=== PATIENT | male | born 1995 | race Caucasian/White ===

== ENCOUNTER 2016-04-15 11:42 | Emergency (ER) | payer MEDICAID ==
[2016-04-15 11:57] VITALS: BP 124/80
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
[2016-04-15] MEDS ORDERED: HYDROCODONE/ACETAMINOPHEN 5-325 MG TABLET PO ONE (12:51)
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
== END 2016-04-15 16:04 | disposition home or self-care (01) ==
LOC: ER 11:42
DX: M25.551 Pain in right hip (principal); M54.5 Low back pain; M25.561 Pain in right knee; V18.9XXA Unspecified pedal cyclist injured in noncollision transport accident in traffic accident, initial encounter; Y93.55 Activity, bike riding; Y92.89 Other specified places as the place of occurrence of the external cause; M47.9 Spondylosis, unspecified; F17.200 Nicotine dependence, unspecified, uncomplicated; Z88.5 Allergy status to narcotic agent
CPT/HCPCS: 72110; 72220; 99284

== ENCOUNTER 2016-05-03 18:56 | Emergency (ER) | payer MEDICAID ==
[2016-05-03] MEDS ORDERED: NORMAL SALINE 1000 ML 1,000 ML IV ONE ×2 (19:30→22:32)
--- NOTE | 2016-05-03 19:30 | ER Document Report ---
ED Seizure - General Chief Complaint: Probable Seizure Stated Complaint: SEIZURES Time seen by provider: 19:25 Notes: Patient is a 20 year old male that comes to the ED for chief complaint of a shaking episode witnessed prior to arrival, [facility] when the staff noticed he appeared to be shaking. Patient was picked up by EMS and was awake and alert, EMS reported that he closes his eyes and began shaking his arm but when he was spoken to and shaken he immediately opened his eyes. Patient states that he has had seizures in the past but he denies ever being on seizure medications other than "benzos". Patient states that he has had episodes where "they were not sure if they were panic attacks or seizures", states the last when he had was when he "drank an energy drink and then went outside into the cold". Denies headache, denies any current symptoms other than feeling tired. Patient has 2 medications with him, meloxicam and Seroquel, takes the Seroquel at night to sleep. He states these were given to him from [place] which he was recently released from after a suicide attempt, he states that he has "learned his lesson from this", states he does not have any suicidal or homicidal ideations. - Related Data Allergies/Adverse Reactions: tramadol [From [facility]] Allergy (Verified 04/15/16 11:58) Past Medical History - General Information source: Patient - Social History Smoking Status: Never Smoker Frequency of alcohol use: Occasional Drug Abuse: None Lives with: Family Family History: Reviewed & Not Pertinent Neurological Medical History: Reports: Hx Seizures Psychiatric Medical History: Reports: Hx Bipolar Disorder, Hx Depression Past Surgical History: Reports: Hx Orthopedic Surgery - Hand/thumb - Immunizations Hx Diphtheria, Pertussis, Tetanus Vaccination: Yes Review of Systems - Review of Systems Constitutional: No symptoms reported EENT: No symptoms reported Cardiovascular: No symptoms reported Respiratory: No symptoms reported Gastrointestinal: No symptoms reported Genitourinary: No symptoms reported Male Genitourinary: No symptoms reported Musculoskeletal: See HPI Skin: No symptoms reported Hematologic/Lymphatic: No symptoms reported Neurological/Psychological: See HPI Physical Exam - Vital signs Vitals: Temp Pulse Resp BP Pulse Ox 98.6 F 81 20 134/74 H 96 05/03/16 19:10 05/03/16 19:10 05/03/16 19:10 05/03/16 19:10 05/03/16 19:10 Interpretation: Normal - General General appearance: Appears well, Alert. No: Anxious In distress: None - HEENT Head: Normocephalic, Atraumatic. No: Open wounds Eyes: Normal Conjunctiva: Normal Extraocular movements intact: Yes Eyelashes: Normal Pupils: PERRL Ears: Normal External canal: Normal Tympanic membrane: Normal Sinus: Normal Nasal: Normal Mouth/Lips: Normal. No: Laceration - No laceration of the tongue noted Mucous membranes: Normal Pharynx: Normal Neck: Normal - Respiratory Respiratory status: No respiratory distress Chest status: Nontender Breath sounds: Normal Chest palpation: Normal - Cardiovascular Rhythm: Regular. No: Tachycardia Heart sounds: Normal auscultation, S1 appreciated, S2 appreciated Murmur: No - Abdominal Inspection: Normal Distension: No distension Bowel sounds: Normal Tenderness: Nontender. No: Tender, Guarding Organomegaly: No organomegaly - Back Back: Normal, Nontender. No: Tender - Extremities General upper extremity: Normal inspection, Nontender, Normal color, Normal ROM , Normal temperature General lower extremity: Normal inspection, Nontender, Normal color, Normal ROM , Normal temperature, Normal weight bearing. No: Murtaza's sign - Neurological Neuro grossly intact: Yes Cognition: Normal Orientation: AAOx4 [place] Coma Scale Eye Opening: Spontaneous [place] Coma Scale Verbal: Oriented Tasha Coma Scale Motor: Obeys Commands [place] Coma Scale Total: 15 Speech: Normal Motor strength normal: LUE, RUE, LLE, RLE Sensory: Normal - Psychological Associated symptoms: Normal affect, Normal mood - Patient calm, cooperative, conversational, makes good eye contact - Skin Skin Temperature: Warm Skin Moisture: Dry Skin Color: Normal Course - Re-evaluation Re-evalutation: CBC, chemistry, magnesium, unremarkable. Urine shows trace leukocyte esterase and some white blood cells, patient denying any dysuria, discharge, flank pain, history of urinary tract infection. Urine culture. Given IV fluids, fed. Patient's symptoms, presentation, examination did not indicate if seizure, I am not convinced patient has a history of seizure disorder based on his history given. Patient are has Seroquel for sleep, meloxicam for pain, patient states that in about 2 days he will start his new job and he has a location to live at that point, requesting to leave. Discussed return precautions. Patient states understanding and agreement. - Vital Signs Vital signs: Temp Pulse Resp BP Pulse Ox 97.7 F 75 16 129/79 H 98 05/04/16 00:14 05/04/16 00:14 05/04/16 00:14 05/04/16 00:14 05/04/16 00:14 - Laboratory Result Diagrams: 05/03/16 20:53 05/03/16 20:53 Laboratory results interpreted by me: 05/03/16 05/03/16 20:53 21:14 Monocytes % 16.1 H Absolute Monocytes 1.5 H Urine Protein 100 H Urine Bilirubin SMALL H Ur Leukocyte Esterase SMALL H Urine Ascorbic Acid 40 H Discharge - Discharge Clinical Impression: Shaking, Dehydration Condition: Stable Disposition: HOME, SELF-CARE Additional Instructions: Your workup shows dehydration, however no other abnormalities are noted on your examination and workup. Symptoms and examination do not indicate a seizure. Continue your current medications, follow-up with your current plan of the job and residence. Return to the emergency department for any concerning symptoms.
[2016-05-03 21:16] LABS: ABSOLUTE EOSINOPHILS # (AUTO) 0.2 10^3/uL (0.0-0.6); ABSOLUTE LYMPHOCYTES (AUTO) 1.8 10^3/uL (0.5-4.7); ABSOLUTE MONOCYTES (AUTO) 1.5 10^3/uL (0.1-1.4); ABSOLUTE NEUT (AUTO) 5.8 10^3/uL (1.7-8.2); BASOPHILS % (AUTO) 0.4 % (0-2); EOSINOPHILS % (AUTO) 2.2 % (0-6); HEMOGLOBIN 14.5 g/dL (13.5-17.0); HGB HCT DIFFERENCE 0.5; LYMPHOCYTES % (AUTO) 19.2 % (13-45); MEAN CORPUSCULAR HEMOGLOBIN 29.5 pg (27.0-33.4); MEAN CORPUSCULAR HGB CONC 33.8 g/dL (32.0-36.0); MEAN CORPUSCULAR VOLUME 87 fl (80-97); MONOCYTES % (AUTO) 16.1 % (3-13); RED BLOOD COUNT 4.92 10^6/uL (4.35-5.55); RED CELL DISTRIBUTION WIDTH 13.4 % (11.5-14.0); SEGMENTED NEUTROPHILS % (AUTO) 62.1 % (42-78); WHITE BLOOD COUNT 9.3 10^3/uL (4.0-10.5)
[2016-05-03 21:35] LABS: ANION GAP 12 (5-19)
[2016-05-03 21:48] LABS: ALBUMIN 4.4 g/dL (3.5-5.0); CARBON DIOXIDE 25 mmol/L (22-30); CHLORIDE 105 mmol/L (98-107); CREATININE RESULT 1.14 mg/dL (0.52-1.25); GLUCOSE 85 mg/dL (75-110); POTASSIUM 4.2 mmol/L (3.6-5.0); SODIUM 142.1 mmol/L (137-145); TOTAL PROTEIN 7.5 g/dL (6.3-8.2)
[2016-05-03 21:49] LABS: APPEARANCE,URINE SLIGHTLY-CLOUDY; BILIRUBIN,URINE SMALL (NEGATIVE); GLUCOSE, URINE NEGATIVE (NEGATIVE); KETONES,URINE NEGATIVE (NEGATIVE); LEUKOCYTE ESTERASE,URINE SMALL (NEGATIVE); NITRITE,URINE NEGATIVE (NEGATIVE); PROTEIN,URINE 100 mg/dL (NEGATIVE); URINE SPECIFIC GRAVITY 1.034; UROBILINOGEN,URINE NEGATIVE mg/dL (<2.0)
[2016-05-03 21:52] LABS: URINE BARBITURATES SCREEN NEGATIVE; URINE METHADONE SCREEN NEGATIVE; URINE OPIATES LOW NEGATIVE; URINE PHENCYCLIDINE SCREEN NEGATIVE
[2016-05-03 21:57] LABS: ALANINE AMINOTRANSFERASE 22 U/L (21-72); ALKALINE PHOSPHATASE 80 U/L (38-126); ASPARTATE AMINO TRANSFERASE 28 U/L (17-59); BILIRUBIN,TOTAL 0.9 mg/dL (0.2-1.3); BLOOD UREA NITROGEN 20 mg/dL (7-20); MAGNESIUM 2.1 mg/dL (1.6-2.3)
[2016-05-03 22:00] LABS: ALCOHOL < 10 mg/dL (NONE DETECTED)
[2016-05-04 00:19] VITALS: BP 129/79
== END 2016-05-04 00:19 | disposition home or self-care (01) ==
LOC: ER 18:56
DX: R25.8 Other abnormal involuntary movements (principal); E86.0 Dehydration
CPT/HCPCS: 99284; 96360; 36415; 87086; 80307 ×2; 83735; 85025; 80053; 81001; J7030

== ENCOUNTER 2016-05-13 20:27 | Emergency (ER) | payer MEDICAID ==
[2016-05-13 21:28] VITALS: BP 117/64
--- NOTE | 2016-05-13 21:34 | ER Document Report ---
ED Medical Screen (RME) - General Stated Complaint: RECTAL BLEEDING Notes: 20 yo male c/o rectal bleeding today. 2 episodes of bright red bleeding with bowel movement. + periumbilical pain. + constipation, no hx/o hemorrhoids. no rectal trauma. TRAVEL OUTSIDE OF THE [place] IN LAST 30 DAYS: No - Related Data Allergies/Adverse Reactions: tramadol [From [facility]] Allergy (Verified 04/15/16 11:58) Past Medical History Neurological Medical History: Reports: Hx Seizures Psychiatric Medical History: Reports: Hx Bipolar Disorder, Hx Depression Past Surgical History: Reports: Hx Orthopedic Surgery - Hand/thumb - Immunizations Hx Diphtheria, Pertussis, Tetanus Vaccination: Yes Physical Exam - Vital signs Vitals: Temp Pulse Resp BP Pulse Ox 98.0 F 83 18 117/64 97 05/13/16 21:27 05/13/16 21:27 05/13/16 21:27 05/13/16 21:27 05/13/16 21:27 Course - Vital Signs Vital signs: Temp Pulse Resp BP Pulse Ox 98.0 F 83 18 117/64 97 05/13/16 21:27 05/13/16 21:27 05/13/16 21:27 05/13/16 21:27 05/13/16 21:27
[2016-05-13 22:03] LABS: ABSOLUTE BASOPHILS # (AUTO) 0.1 10^3/uL (0.0-0.2); ABSOLUTE EOSINOPHILS # (AUTO) 0.2 10^3/uL (0.0-0.6); ABSOLUTE LYMPHOCYTES (AUTO) 3.8 10^3/uL (0.5-4.7); ABSOLUTE MONOCYTES (AUTO) 0.7 10^3/uL (0.1-1.4); ABSOLUTE NEUT (AUTO) 4.2 10^3/uL (1.7-8.2); BASOPHILS % (AUTO) 0.8 % (0-2); EOSINOPHILS % (AUTO) 2.4 % (0-6); HEMATOCRIT 40.8 % (37.9-51.0); HGB HCT DIFFERENCE 1.2; LYMPHOCYTES % (AUTO) 41.9 % (13-45); MEAN CORPUSCULAR HEMOGLOBIN 29.5 pg (27.0-33.4); MEAN CORPUSCULAR HGB CONC 34.2 g/dL (32.0-36.0); MEAN CORPUSCULAR VOLUME 86 fl (80-97); MONOCYTES % (AUTO) 8.3 % (3-13); RED BLOOD COUNT 4.73 10^6/uL (4.35-5.55); SEGMENTED NEUTROPHILS % (AUTO) 46.6 % (42-78)
[2016-05-13 22:23] LABS: ALANINE AMINOTRANSFERASE 22 U/L (21-72); ALBUMIN 4.6 g/dL (3.5-5.0); ALKALINE PHOSPHATASE 74 U/L (38-126); ANION GAP 11 (5-19); ASPARTATE AMINO TRANSFERASE 27 U/L (17-59); BILIRUBIN,TOTAL 0.6 mg/dL (0.2-1.3); BLOOD UREA NITROGEN 17 mg/dL (7-20); CALCIUM 9.7 mg/dL (8.4-10.2); CARBON DIOXIDE 27 mmol/L (22-30); CHLORIDE 104 mmol/L (98-107); CREATININE RESULT 1.44 mg/dL (0.52-1.25); GLUCOSE 89 mg/dL (75-110); POTASSIUM 4.1 mmol/L (3.6-5.0); TOTAL PROTEIN 7.3 g/dL (6.3-8.2)
== END 2016-05-14 00:47 | disposition left against medical advice (07) ==
LOC: ER 20:27
DX: K62.5 Hemorrhage of anus and rectum (principal); K59.00 Constipation, unspecified; R10.33 Periumbilical pain; Z53.20 Procedure and treatment not carried out because of patient's decision for unspecified reasons
CPT/HCPCS: 36415; 80053; 85025; 99281

== ENCOUNTER 2016-06-09 07:05 | Emergency (ER) | payer MEDICAID ==
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
[2016-06-09 08:49] LABS: APPEARANCE,URINE SLIGHTLY-CLOUDY; BILIRUBIN,URINE NEGATIVE (NEGATIVE); GLUCOSE, URINE NEGATIVE (NEGATIVE); KETONES,URINE NEGATIVE (NEGATIVE); LEUKOCYTE ESTERASE,URINE NEGATIVE (NEGATIVE); NITRITE,URINE NEGATIVE (NEGATIVE); PROTEIN,URINE NEGATIVE (NEGATIVE); URINE SPECIFIC GRAVITY 1.014; UROBILINOGEN,URINE NEGATIVE mg/dL (<2.0)
[2016-06-09 10:20] LABS: CHLAM PCR NOT DETECTED (NOT DETECT)
[2016-06-09 11:18] VITALS: BP 114/71
== END 2016-06-09 11:18 | disposition home or self-care (01) ==
LOC: ER 07:05
DX: R21 Rash and other nonspecific skin eruption (principal); B35.3 Tinea pedis; R36.9 Urethral discharge, unspecified; F17.210 Nicotine dependence, cigarettes, uncomplicated; Z71.6 Tobacco abuse counseling; Z88.5 Allergy status to narcotic agent
CPT/HCPCS: 81001; 87210; 87491; 87591; 99283

== ENCOUNTER 2016-06-29 23:13 | Emergency (ER) | payer MEDICAID ==
--- NOTE | 2016-06-30 04:19 | ER Document Report ---
ED Extremity Problem, Lower - General Mode of Arrival: Ambulatory Information source: Patient TRAVEL OUTSIDE OF THE [place] IN LAST 30 DAYS: No - HPI Patient complains to provider of: Pain Location: Foot Occurred: This evening Context: Other - See HPI Associated symptoms: Other - see HPI <DASHA REESE - Last Filed: 06/30/16 04:49> <MELISSAMAITE DIANNE - Last Filed: 06/30/16 06:45> - General Chief Complaint: L foot injury Stated Complaint: LEFT FOOT INJURY Notes: 20 year old male presents to the ED complaining of left foot pain after dropping a washing machine on it earlier this evening. Father states that the patient's friend lost lumber stacker driver of one of the corners and the appliance proceeded to fall onto the patient's left foot. (DASHA REESE) - Related Data Allergies/Adverse Reactions: tramadol [From Ultram] Allergy (Verified 06/09/16 07:54) Past Medical History - General Information source: Patient - Social History Smoking Status: Current Every Day Smoker Family History: Reviewed & Not Pertinent Neurological Medical History: Reports: Hx Seizures Renal/ Medical History: Denies: Hx Peritoneal Dialysis Psychiatric Medical History: Reports: Hx Bipolar Disorder, Hx Depression Past Surgical History: Reports: Hx Orthopedic Surgery - Hand/thumb - Immunizations Hx Diphtheria, Pertussis, Tetanus Vaccination: Yes <DASHA REESE - Last Filed: 06/30/16 04:49> Review of Systems - Review of Systems Constitutional: No symptoms reported EENT: No symptoms reported Cardiovascular: No symptoms reported Respiratory: No symptoms reported Gastrointestinal: No symptoms reported Genitourinary: No symptoms reported Male Genitourinary: No symptoms reported Musculoskeletal: See HPI, Other - left foot pain Skin: No symptoms reported Hematologic/Lymphatic: No symptoms reported Neurological/Psychological: No symptoms reported -: Yes All other systems reviewed and negative <DASHA REESE - Last Filed: 06/30/16 04:49> Physical Exam - Vital signs Interpretation: Normal - General General appearance: Appears well, Alert - HEENT Head: Normocephalic, Atraumatic Eyes: Normal Pupils: PERRL - Respiratory Respiratory status: No respiratory distress Chest status: Nontender Breath sounds: Normal Chest palpation: Normal - Cardiovascular Rhythm: Regular Heart sounds: Normal auscultation Murmur: No - Abdominal Inspection: Normal Distension: No distension Bowel sounds: Normal Tenderness: Nontender Organomegaly: No organomegaly - Back Back: Normal, Nontender - Extremities General upper extremity: Normal inspection, Nontender, Normal color, Normal ROM , Normal temperature General lower extremity: Normal inspection, Tender, Normal color, Normal ROM, Normal temperature, Normal weight bearing. No: Murtaza's sign Foot: Tender - Tenderness to palpation over the top of the left foot approximately. Excellent pedal pulses bilaterally. Sensation intact to light touch - Neurological Neuro grossly intact: Yes Cognition: Normal Orientation: AAOx4 Home Coma Scale Eye Opening: Spontaneous Tasha Coma Scale Verbal: Oriented Home Coma Scale Motor: Obeys Commands Home Coma Scale Total: 15 Speech: Normal Motor strength normal: LUE, RUE, LLE, RLE Sensory: Normal - Psychological Associated symptoms: Normal affect, Normal mood - Skin Skin Temperature: Warm Skin Moisture: Dry Skin Color: Normal <MAITE TORRES - Last Filed: 06/30/16 06:45> - Vital signs Vitals: Temp Pulse Resp BP Pulse Ox 98.4 F 85 16 112/80 99 06/29/16 23:19 06/29/16 23:19 06/29/16 23:19 06/29/16 23:19 06/29/16 23:19 Course <DASHA REESE - Last Filed: 06/30/16 04:49> - Diagnostic Test Radiology reviewed: Reports reviewed <MAITE TORRES - Last Filed: 06/30/16 06:45> - Re-evaluation Re-evalutation: 06/30/16 No evidence for fracture on x-ray. Patient is able to ambulate. Will be given postop shoe for comfort. Does not want crutches. Blood sugar within normal limits. No other injuries. Stable for discharge home. (MAITE TORRES) - Vital Signs Vital signs: Temp Pulse Resp BP Pulse Ox 97.7 F 64 14 117/68 97 06/30/16 04:45 06/30/16 04:45 06/30/16 04:45 06/30/16 04:45 06/30/16 04:45 Discharge <DASHA REESE - Last Filed: 06/30/16 04:49> <MAITE TORRES - Last Filed: 06/30/16 06:45> - Discharge Clinical Impression: Contusion of foot, left Qualifiers: Encounter type: initial encounter Qualified Code(s): S90.32XA - Contusion of left foot, initial encounter Condition: Stable Disposition: HOME, SELF-CARE Instructions: Contusion ([facility]), Ice Packs ([facility]), Ice & Elevation ([facility]), Post-Op Shoe ([facility]) Additional Instructions: Please take Tylenol or ibuprofen [id number] as needed. Forms: Return to Work Scribe Attestation: 06/30/16 06:45 I personally performed the services described in the documentation, reviewed and edited the documentation which was dictated to the scribe in my presence, and it accurately records my words and actions. (MAITE TORRES) Scribe Documentation - Scribe Written by Scribe:: Corey Holbrook, 06/30/2016 [id number] acting as scribe for :: Melissa <DASHA REESE - Last Filed: 06/30/16 04:49>
[2016-06-30] MEDS ORDERED: ACETAMINOPHEN 325 MG TABLET PO ONE (04:22)
[2016-06-30 04:55] VITALS: BP 117/68
== END 2016-06-30 04:50 | disposition home or self-care (01) ==
LOC: ER 23:13
DX: S90.32XA Contusion of left foot, initial encounter (principal); F17.200 Nicotine dependence, unspecified, uncomplicated; W20.8XXA Other cause of strike by thrown, projected or falling object, initial encounter
CPT/HCPCS: 99283; 82962; 73630; J3490